=== PATIENT | female | born 2000 | race Hispanic/Latino ===

== ENCOUNTER 2021-03-14 20:20 | Emergency (ER) | payer SELFPAY | END 2021-03-14 21:26 | disposition home or self-care (01) | LOC: CSHERS 20:20 | DX: B34.9 Viral infection, unspecified (principal); H10.10 Acute atopic conjunctivitis, unspecified eye; F17.290 Nicotine dependence, other tobacco product, uncomplicated | CPT/HCPCS: 99283 ==